=== PATIENT | male | born 1945 | race Caucasian/White ===

== ENCOUNTER 2016-10-21 00:34 | Emergency (ER) | payer OTHER ==
[2016-10-21 00:42] VITALS: PULSE 56; RESP 16; O2SAT 94
--- NOTE | 2016-10-21 00:55 | EDPHY ---
H & P Stated Complaint: left eye redened denies pain or vision changes HPI/ROS: HPI CHIEF COMPLAINT: Left eye redness HISTORY OF PRESENT ILLNESS: This patient is a very pleasant 71-year-old male denies any significant medical history specifically denies hypertension, or being on blood thinners he presents emergency room with left eye redness. He denies visual disturbance her vision loss, denies eye pain. He tells me over 24 hours ago he was making something in the microwave and the hot soup exploded this exploded into his face he sustained trauma below the right eye however from a reflex of bring his hand to protect his face he thinks he may have hit his left eye with his right hand protecting from the exploding soup in the microwave. Denies any pain or visual disturbance however he noticed that today his eye was red consistent with a conjunctival hemorrhage denies any pain he put it off kept putting it off and decided that tonight it was his eye and he would get it checked out. this patient also tells me that he has been working out vigorously however does not remember having a subconjunctival hemorrhage from working out Upon arrival here to the emergency room is resting comfortably in no acute distress he denies visual disturbance or eye pain. Does present to the emergency room with the left eye conjunctival hemorrhage. Past Medical History: No significant medical history Past Surgical History: Cataract surgery both eyes and retinal detachment of right eye Social History: Occasional alcohol use, denies drugs, does smoke marijuana occasionally, denies tobacco products Family History: Noncontributory ROS REVIEW OF SYSTEMS: A comprehensive 10 point review of systems is otherwise negative aside from elements mentioned in the history of present illness. Exam Constitutional triage nursing summary reviewed, vital signs reviewed, awake/ alert. Eyes eye exam: visual acuity reviewed and normal, visual hayes intact in both eyes, right eye unremarkable, left eye there is a large subconjunctival hemorrhage or located on the medial conjunctiva than lateral conjunctiva, the anterior chamber is normal there is no hyphema there is no flare, posterior eye exam without dilatation is unremarkable, extraocular movements intact, no proptosis, no hardened globe, no evidence of globe injury, no evidence of acute angle glaucoma, pupils equal and reactive to light, good accommodation, on fluorescein uptake there is no uptake there is no evidence of corneal abrasion. HENT normal inspection, atraumatic, moist mucus membranes, no epistaxis, neck supple/ no meningismus, no raccoon eyes. Respiratory clear to auscultation bilaterally, normal breath sounds, no respiratory distress, no wheezing. Cardiovascular rate normal, regular rhythm, no murmur, no edema, distal pulses normal. Gastrointestinal soft, non-tender, no rebound, no guarding, normal bowel sounds, no distension, no pulsatile mass. Genitourinary no CVA tenderness. Musculoskeletal no midline vertebral tenderness, full range of motion, no calf swelling, no tenderness of extremities, no meningismus, good pulses, neurovascularly intact. Skin pink, warm, & dry, no rash, skin atraumatic. Neurologic awake, alert and oriented x 3, AAOx3, moves all 4 extremities equally, motor intact, sensory intact, CN II-XII intact, normal cerebellar, normal vision, normal speech. Psychiatric normal mood/affect. Heme/Lymph/Immune no lymphadenopathy. Differential Diagnosis: Includes but is not limited to in a particular order, subconjunctival hemorrhage, corneal abrasion, conjunctival tear, Eye trauma, hyphema, vitreous hemorrhage Medical Decision Making:This patient eye exam is significant for a left eye subconjunctival hemorrhage, there is no hyphema the globe is soft, his visual acuity is intact visual hayes are intact. There is no corneal abrasion or corneal tear on exam. I do recommend that he follows up with Ophthalmology in the next 24-48 hours he does understand return emergency room if develops any worsening symptoms this includes worsening pain trouble with his vision worsening bleeding. I did recommend that he follows up with Ophthalmology he does not drop his I also recommend that he does not perform strenuous activity due to the subconjunctival hemorrhage that is rather large. He develops eye pain, worsening bleeding or vision problems return to the ER. He understands this. Of note this patient is requesting a hard I she will cover he tells me that at times he rubs his eye this concerning may rub his eye worse at night. I explained she should not wear an eye patch her heart cover continuously I will provide him a hard rigid eye patch for tonight so he does not rub his eye he is agreeable for this. Source: Patient - Personal History Current Tetanus/Diphtheria Vaccine: Yes Current Tetanus Diphtheria and Acellular Pertussis (TDAP): Yes - Medical/Surgical History Hx Asthma: No Hx Chronic Respiratory Disease: No Hx Diabetes: No Hx Cardiac Disease: No Hx Renal Disease: No Hx Cirrhosis: No Hx Alcoholism: No Hx HIV/AIDS: No Hx Splenectomy or Spleen Trauma: No Other PMH: GERD - Social History Smoking Status: Never smoked Constitutional: Initial Vital Signs Temperature (C) 36.3 C 10/21/16 00:38 Heart Rate 56 L 10/21/16 00:38 Respiratory Rate 16 10/21/16 00:38 Blood Pressure 125/87 H 10/21/16 00:38 O2 Sat (%) 94 10/21/16 00:38 O2 Delivery Mode Room Air Allergies/Adverse Reactions: aspirin [From Percodan] Allergy (Verified 03/01/10 16:57) oxycodone HCl [From Percodan] Allergy (Verified 03/01/10 16:57) oxycodone terephthalate [From Percodan] Allergy (Verified 03/01/10 16:57) Home Medications: Medication Instructions Recorded Omeprazole 10/21/16 Medical Decision Making - Data Points Medications Given: Discontinued Medications Fluorescein Sodium ([id number]) 1 mg OP EDNOW ONE Stop: 10/21/16 01:03 Last Admin: 10/21/16 01:02 Dose: 1 mg Proparacaine HCl (Alcaine 0.5%) 1 drops LEFTEYE ONCE ONE Stop: 10/21/16 01:03 Last Admin: 10/21/16 01:02 Dose: 2 drops Departure - Departure Disposition: Home, Routine, Self-Care Clinical Impression: Subconjunctival hemorrhage Qualifiers: Laterality: left Qualifier Code: (H11.32) Conjunctival hemorrhage, left eye Condition: Good Instructions: Subconjunctival Hemorrhage (ED) Additional Instructions: 1. please follow up with Ophthalmology next 24-48 hours 2. return to the emergency room if he develops any worsening symptoms includes eye pain, trouble with vision. Referrals: JAMIE MOSCOSO [Primary Care Provider] - As per Instructions Jeromy Barros MD [Medical Doctor] - As per Instructions
[2016-10-21] MEDS ORDERED: FLUORESCEIN SODIUM 1 MG STRIP OP ONE ×3 (00:56→01:02)
[2016-10-21] MEDS ORDERED: PROPARACAINE 0.5% 15 ML OPHT DROP ONE (00:57)
[2016-10-21] MEDS ORDERED: PROPARACAINE 0.5% 15 ML OPHT DROP LEFTEYE ONE (01:02)
[2016-10-21 01:34] VITALS: BP 140/89; TEMP 97.9
== END 2016-10-21 01:34 | disposition home or self-care (01) ==
DX: H11.32 Conjunctival hemorrhage, left eye (principal); X58.XXXA Exposure to other specified factors, initial encounter

== ENCOUNTER 2017-04-08 12:00 | Emergency (ER) | payer OTHER ==
[2017-04-08 12:32] VITALS: RESP 16; TEMP 98.2; O2SAT 94
--- NOTE | 2017-04-08 12:57 | EDPHY ---
H & P Stated Complaint: L knee hurts;no acute injury,has hx chronic knee problems HPI/ROS: CHIEF COMPLAINT: Left knee pain HISTORY OF PRESENT ILLNESS: Patient has an acute exacerbation of left knee pain due to a fall this morning. He felt that he had a loose body in the knee that caught, causing him to fall today. He landed on the left knee but said he did so in a controlled manner. No head or neck injury. No loss conscious. No chest or back pain or injury. No injuries to the arms or the right leg. The pain is isolated to the left knee. There is some swelling. No numbness or tingling. No complaints distally. Has longstanding history arthritis in the knee status post soft tissue surgeries in the past. No other associated complaints or modifying factors. PRIOR ORTHO INJURIES: Arthritis with right ankle surgery, left knee scope x3 ESTABLISHED ORTHOPEDIST: REVIEW OF SYSTEMS: Ten systems reviewed and are negative unless otherwise noted in the HPI EXAMINATION General Appearance: Alert, no distress Cardiovascular: Pulses normal throughout. Symmetric DP pulses 2+. Symmetric PT pulses 2+ Brisk cap refill Neurological: A&O, sensory symmetric, strength symmetric Skin: Warm and dry, no rash. No erythema of the lower extremities. Extremities: Mild edema and tenderness of the left knee joint. There is no point tenderness of the knee. There is complete crepitus noted. No instability of the knee. Negative Harshad's. Negative drawer. Arthritic appearance. Range of motion is symmetric to the right knee. Neurovascular intact distal to the pain. No evidence of DVT on examination Psychiatric: Mood and affect normal DIFFERENTIAL DIAGNOSES: Including but not limited to knee sprain, and strain, fracture, dislocation, foreign body, osteoarthritis, meniscal injury, collateral ligament injury, ACL injury, PCL injury MDM: 12:55 p.m. Acute exacerbation of left knee pain due to a fall today. He feels that there was a loose body that caught within knee, caused him to fall and strike the knee. He has no neurovascular deficits. He has no injuries elsewhere. X-ray has been ordered. 1:27 p.m. X-ray reveals no acute findings. There is severe, multi Compartment arthritis. Treat with crutches and Brenton wrap. Recommend [id number] anti- inflammatories, ice and elevation. He has an appointment with his established orthopedist this Saturday. He will keep this. He remains neurovascular intact. We discussed [id number] exercises to avoid stiffness of the knee. He is comfortable with this plan and discharged home stable condition. ED Precautions: Worsening pain. Erythema, edema, cyanosis, pallor, paresthesia or anesthesia. SUPERVISION: This patient was independently evaluated without direct examination by the attending physician. Case was discussed with attending physician. Source: Patient, Family Exam Limitations: No limitations - Personal History Current Tetanus Diphtheria and Acellular Pertussis (TDAP): Yes - Medical/Surgical History Hx Asthma: No Hx Chronic Respiratory Disease: No Hx Diabetes: No Hx Cardiac Disease: No Hx Renal Disease: No Hx Cirrhosis: No Hx Alcoholism: No Hx HIV/AIDS: No Hx Splenectomy or Spleen Trauma: No Other PMH: GERD. numerous surgs/inj L knee - Social History Smoking Status: Former smoker Constitutional: Initial Vital Signs Temperature (C) 98.2 F 04/08/17 12:20 Heart Rate 67 04/08/17 12:20 Respiratory Rate 16 04/08/17 12:20 Blood Pressure 136/90 H 04/08/17 12:20 O2 Sat (%) 94 04/08/17 12:20 O2 Delivery Mode Room Air Allergies/Adverse Reactions: oxycodone HCl [From Percodan] Allergy (Mild, Verified 04/08/17 12:29) n/v oxycodone terephthalate [From Percodan] Allergy (Verified 04/08/17 12:29) n/v Home Medications: Medication Instructions Recorded NK [No Known Home Meds] 04/08/17 Medical Decision Making - Diagnostics Imaging Results: Imaging Impressions Knee X-Ray 04/08/17 12:32 Impression: Severe multilevel degenerative osteoarthritic changes of the left knee. Departure - Departure Disposition: Home, Routine, Self-Care Clinical Impression: Left knee sprain Qualifiers: Encounter type: initial encounter Involved ligament of knee: unspecified ligament Qualified Code(s): S83.92XA - Sprain of unspecified site of left knee, initial encounter Osteoarthritis Qualifiers: Osteoarthritis location: knee Osteoarthritis type: unspecified Laterality: left Qualified Code(s): M17.12 - Unilateral primary osteoarthritis, left knee Condition: Good Instructions: Knee Sprain (ED), Osteoarthritis (ED) Additional Instructions: 1. Crutches as needed 2. weight-bearing as tolerated 3. Anti-inflammatories [id number] every 8 hours, ice and elevation often Referrals: JAMIE MOSCOSO [Primary Care Provider] - As per Instructions Nuria Saleem MD [Medical Doctor] - As per Instructions
[2017-04-08 13:46] VITALS: BP 135/95; PULSE 75
== END 2017-04-08 13:45 | disposition home or self-care (01) ==
DX: S83.92XA Sprain of unspecified site of left knee, initial encounter (principal); M17.12 Unilateral primary osteoarthritis, left knee; Z87.891 Personal history of nicotine dependence; W18.39XA Other fall on same level, initial encounter; Y99.8 Other external cause status; Y93.89 Activity, other specified